=== PATIENT | male | born 1975 ===

== ENCOUNTER → 2018-09-09 19:10 | Outpatient (ROUT) | payer OTHER, SELFPAY ==
[2018-09-09 21:09] LABS: Urine N gonorrhoeae NOT DETECTED
[2018-09-10 12:02] LABS: Urine Chlamydia DETECTED
== END ==
PROVIDERS: Visit Provider Nurse Practitioner Acute Care
DX: Z20.2 Contact with and (suspected) exposure to infections with a predominantly sexual mode of transmission (principal)
CPT/HCPCS: 87491; 87591